=== PATIENT | female | born 1955 | race Caucasian/White ===

== ENCOUNTER → 2017-03-12 | Outpatient (CLI) | payer OTHER ==
[~2017-03-12] MED LIST: ALLOPURINOL 10100 M1; AMLODIPINE BESY10 MG; BIOTIN10000 MC1; GABAPENTIN 100100 MG; HYDROCODON-ACE1 EAC7 PO; MEDROLDOSEPACK PO; NOLVADEX20 MG; VITAMIN E400 UNIT; VITAMINC500; ZANAFLEX4 MG
== END ==
LOC: M.RAD 09:44
DX: M47.894 Other spondylosis, thoracic region (principal); M85.88 Other specified disorders of bone density and structure, other site; I25.10 Atherosclerotic heart disease of native coronary artery without angina pectoris; W19.XXXA Unspecified fall, initial encounter

== ENCOUNTER → 2017-04-04 | Outpatient (CLI) | payer OTHER | LOC: M.RAD 16:00 | DX: M85.88 Other specified disorders of bone density and structure, other site (principal); Z78.0 Asymptomatic menopausal state ==

== ENCOUNTER 2017-08-13 03:31 | Emergency (ER) | payer OTHER ==
[~2017-08-13] VITALS: Ht 162.6 cm; Wt 89.8 kg
[2017-08-13] MEDS ORDERED: ZANAFLEX4 MG (03:43)
[2017-08-13] MEDS ORDERED: VITAMIN E400 UNIT (03:43)
[2017-08-13] MEDS ORDERED: VITAMINC500 (03:43)
[2017-08-13] MEDS ORDERED: BIOTIN10000 MC1 (03:44)
[2017-08-13] MEDS ORDERED: AMLODIPINE BESY10 MG (03:44)
[2017-08-13] MEDS ORDERED: NOLVADEX20 MG (03:45)
[2017-08-13] MEDS ORDERED: ALLOPURINOL 10100 M1 (03:45)
[2017-08-13] MEDS ORDERED: GABAPENTIN 100100 MG (03:45)
[2017-08-13] MEDS ORDERED: MEDROLDOSEPACK PO (05:04)
[2017-08-13] MEDS ORDERED: HYDROCODON-ACE1 EAC7 PO (05:04)
[2017-08-13 05:34] VITALS: BP 141/77
== END 2017-08-13 05:42 | disposition home or self-care (01) ==
LOC: M.ERS 03:31
DX: M54.16 Radiculopathy, lumbar region (principal); M19.90 Unspecified osteoarthritis, unspecified site; I10 Essential (primary) hypertension; M10.9 Gout, unspecified

== ENCOUNTER → 2017-09-20 | Outpatient (CLI) | payer OTHER | LOC: M.MRI 14:30 | DX: M48.062 Spinal stenosis, lumbar region with neurogenic claudication (principal); M51.26 Other intervertebral disc displacement, lumbar region; M46.96 Unspecified inflammatory spondylopathy, lumbar region; I10 Essential (primary) hypertension; Z85.3 Personal history of malignant neoplasm of breast ==

== ENCOUNTER 2019-02-15 16:26 | Emergency (ER) | payer OTHER ==
[~2019-02-15] VITALS: Ht 162.6 cm; Wt 90.7 kg
[2019-02-15] MEDS ORDERED: COZAAR 25 MG TA25 M1 (16:49)
[2019-02-15] MEDS ORDERED: HYDROCODON-ACE1 EAC7 PO (17:52)
[2019-02-15] MEDS ORDERED: MEDROLDOSEPACK PO (17:52)
[2019-02-15] MEDS ORDERED: TORADOL 10 MG T10 MG PO (17:52)
[2019-02-15 18:38] VITALS: BP 178/98
== END 2019-02-15 18:38 | disposition home or self-care (01) ==
LOC: M.ERS 16:26
DX: S83.8X2A Sprain of other specified parts of left knee, initial encounter (principal); I10 Essential (primary) hypertension; M10.9 Gout, unspecified; G62.9 Polyneuropathy, unspecified; Z85.3 Personal history of malignant neoplasm of breast; Z90.13 Acquired absence of bilateral breasts and nipples; X50.0XXA Overexertion from strenuous movement or load, initial encounter; Y92.89 Other specified places as the place of occurrence of the external cause; Y93.89 Activity, other specified; Y99.8 Other external cause status